=== PATIENT | female | born 1980 ===

== ENCOUNTER 2018-01-23 19:47 | Emergency (ER) | payer SELFPAY ==
[2018-01-23 19:57] VITALS: BP 136/90; PULSE 101; RESP 16; TEMP 98; O2SAT 98
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
[2018-01-23] MEDS ORDERED: Naproxen 500 MG TAB PO ONE ×2 (21:00→21:02)
== END 2018-01-23 21:24 | disposition home or self-care (01) ==
LOC: H.ER 19:47
DX: S00.81XA Abrasion of other part of head, initial encounter (principal); Z86.59 Personal history of other mental and behavioral disorders; Z88.0 Allergy status to penicillin; Y04.2XXA Assault by strike against or bumped into by another person, initial encounter